=== PATIENT | female | born 1975 | race Caucasian/White ===

== ENCOUNTER → 2017-04-08 | Outpatient (CLI) | payer MEDICARE, OTHER | LOC: RAD 16:29 | DX: Z01.811 Encounter for preprocedural respiratory examination (principal); E66.01 Morbid (severe) obesity due to excess calories; R06.02 Shortness of breath | CPT/HCPCS: 71020; 94060; 94729 ==

== ENCOUNTER → 2017-04-08 | Outpatient (CLI) | payer MEDICARE, OTHER | LOC: HEART 5 14:11 | DX: Z01.811 Encounter for preprocedural respiratory examination (principal); R06.02 Shortness of breath | CPT/HCPCS: 94060; 94729 ==

== ENCOUNTER → 2017-04-19 | Outpatient (CLI) | payer MEDICARE, OTHER | LOC: HEART 5 09:30 | DX: Z01.810 Encounter for preprocedural cardiovascular examination (principal); I51.9 Heart disease, unspecified | CPT/HCPCS: 93306 ==

== ENCOUNTER → 2020-11-22 | Outpatient (CLI) | payer BC, MEDICARE, OTHER | LOC: HEART 5 08:00 | DX: I11.9 Hypertensive heart disease without heart failure (principal); I08.3 Combined rheumatic disorders of mitral, aortic and tricuspid valves | CPT/HCPCS: 93306 ==

== ENCOUNTER → 2020-12-26 | Outpatient (CLI) | payer BC, MEDICARE, OTHER | LOC: HEART 5 10:31 | DX: R00.2 Palpitations (principal) ==

== ENCOUNTER → 2021-11-06 | Outpatient (CLI) | payer BC, MEDICARE, OTHER ==
[~2021-11-06] VITALS: Ht 160 cm; Wt 91.2 kg
== END ==
LOC: ER1 17:10 → EDSTATUS 17:35 → EROP 17:38
DX: U07.1 COVID-19 (principal); Z23 Encounter for immunization
CPT/HCPCS: 96365

== ENCOUNTER → 2022-07-06 | Outpatient (CLI) | payer BC, MEDICARE, OTHER | LOC: KOH-I 16:28 | DX: Z30.431 Encounter for routine checking of intrauterine contraceptive device (principal) | CPT/HCPCS: 72170; 74018 ==